=== PATIENT | female | born 1970 | race Two or more races ===

== ENCOUNTER 2019-06-08 13:23 | Emergency (ER) | payer OTHER ==
[~2019-06-08] VITALS: Ht 165.1 cm; Wt 74.8 kg
[2019-06-08] MEDS ORDERED: SYNTHROID75 MCG PO (13:56)
== END 2019-06-08 16:34 | disposition home or self-care (01) ==
LOC: ER 13:23
DX: K59.09 Other constipation (principal); S50.12XA Contusion of left forearm, initial encounter; S50.11XA Contusion of right forearm, initial encounter; W55.41XA Bitten by pig, initial encounter; Y93.89 Activity, other specified; Y92.018 Other place in single-family (private) house as the place of occurrence of the external cause; Y99.8 Other external cause status